=== PATIENT | female | born 1960 | race Two or more races ===

== ENCOUNTER 2024-12-03 17:44 | Emergency (ER) | payer OTHER ==
[~2024-12-03] VITALS: Ht 152.4 cm; Wt 63.6 kg
[2024-12-03 19:04] VITALS: TEMP 98.4
[2024-12-03] MEDS: NITROGLYCERIN 0.4 MG SL TAB SL ONE (19:04)
--- NOTE | 2024-12-03 19:04 | DVH ---
CHEST RADIOGRAPH Indication: Chest pain Technique: Single frontal view of the chest was obtained COMPARISON: None FINDINGS: Lines and Tubes: None Lungs: Clear Pleura: No effusion. No pneumothorax. Cardiomediastinal contours: Unremarkable Bones: Unremarkable IMPRESSION: No acute disease.
[2024-12-03 19:23] LABS: Basophils # (auto) 0.1 10 ^3/uL (0-0.2); Basophils % (auto) 1.1 % (0.0-2.0); Eosinophils # (auto) 0.4 10 ^3/uL (0-0.8); Eosinophils % (auto) 4.4 % (0.0-7.0); Hematocrit 40.6 % (36.0-46.0); Lymphocytes # (auto) 4.2 10 ^3/uL (0.4-5.4); Lymphocytes % (auto) 49.3 % (10.0-50.0); Mean Corpuscular Hemoglobin 31.1 pg (28.0-32.0); Mean Corpuscular Hgb Conc. 34.4 g/dL (32.0-36.0); Mean Corpuscular Volume 90.2 fL (80.0-100.0); Monocytes # (auto) 0.4 10 ^3/uL (0-1.3); Monocytes % (auto) 5.2 % (0.0-12.0); Neutrophils # (auto) 3.4 10 ^3/uL (1.6-8.6); Nucleated Red Blood Cells % 0.1 %; Platelet Count (auto) 285 10^3/uL (140-450); Red Cell Distribution Width 13.2 % (11.8-14.3); White Blood Cell 8.4 10^3/uL (4.4-10.8)
[2024-12-03 20:16] VITALS: BP 111/72; PULSE 87; RESP 17; O2SAT 98
[2024-12-03 20:32] LABS: Alkaline Phosphatase 96 U/L (46-116); Anion Gap 13 (5-15); Aspartate Aminotransferase 24 U/L (13-40); BUN/Creatinine Ratio 18.1 (10.0-20.0); Blood Urea Nitrogen 17 mg/dL (9-23); Calcium 10.1 mg/dL (8.7-10.4); Glucose 97 mg/dL (74-106); Sodium 140 mmol/L (136-145)
[2024-12-03 20:33] LABS: Total Protein 7.6 g/dL (5.7-8.2)
[2024-12-03 20:35] LABS: Alanine Aminotransferase 44 U/L (7-40); Albumin 4.9 g/dL (3.2-4.8); Bilirubin, Total 0.3 mg/dL (0.2-1.0); Carbon Dioxide 18 mmol/L (20-31); Chloride 109 mmol/L (98-107); Potassium 3.5 mmol/L (3.5-5.1)
[2024-12-03] MEDS ORDERED: NITR0.4S29 SL (21:28)
--- NOTE | 2024-12-03 21:29 | ED.PDOC ---
HPI Comments This patient is a moderately histrionic 64-year-old female who arrives to the ED today with complaints of left-sided chest pain that radiates into her left-sided neck, face and left arm for the past several hours. Patient states the symptoms came on and has been relatively unrelenting. Patient denies any history of cardiac or pulmonary issues. Patient denies any fever nausea or vomiting. Vital signs were stable on arrival. Chief Complaint: Chest Pain Time Seen by MD: 18:10 Reviewed Notes: Nurses Notes Information Source: Patient, Friend Mode of Arrival: Ambulatory Severity: Moderate Timing: Hours Duration: Since onset Prehospital treatment: None Location: Chest (L) Radiation: Jaw, Shoulder (L), Arm (L) Quality: Sharp, Stabbing, Crushing Onset: At Rest Cardiac Risk Factors: HTN, None History of: None Past Medical History PAST MEDICAL HISTORY: HTN Surgical History: Denies all surgeries REFINERY PROCESS ENGINEER History: No Pertinent REFINERY PROCESS ENGINEER History Family History Family History: Reviewed,noncontributory to illness, No family hx of Cancer, No family hx of DM, No family hx of Heart danette, No family hx of HTN, No family hx ofKidney danette, No family hx of Liver danette, No family hx of Lung danette, No family hx of Stroke Social History Smoker: Non-Smoker Alcohol: Denies ETOH Use Drugs: Denies Drug Use Lives In: Home Constitutional: denies: chills, diaphoresis, fatigue, fever, malaise, sweats, weakness, others EENTM: denies: blurred vision, double vision, ear bleeding, ear discharge, ear drainage, ear pain, ear ringing, eye pain, eye redness, hearing loss, mouth pain, mouth swelling, nasal discharge, nose bleeding, nose congestion, nose pain, photophobia, tearing, throat pain, throat swelling, voice changes, others Respiratory: denies: cough, hemoptysis, orthopnea, SOB at rest, shortness of breath, SOB with excertion, stridor, wheezing, others Cardiovascular: reports: chest pain; denies: dizzy spells, diaphoresis, Dyspnea on exertion, edema, irregular heart beat, left arm pain, lightheadedness, palpitations, PND, syncope, others Gastrointestinal: denies: abdomen distended, abdominal pain, blood streaked bowels, constipated, diarrhea, dysphagia, difficulty swallowing, hematemesis, melena, nausea, poor appetite, poor fluid intake, rectal bleeding, rectal pain, vomiting, others Genitourinary: denies: abnormal vagina bleeding, burning, dyspareunia, dysuria, flank pain, frequency, hematuria, incontinence, pain, , vagina discharge, urgency, others Neurological: denies: dizziness, fainting, headache, left sided numbness, left sided weakness, numbness, paresthesia, pre-existing deficit, right sided numbness, right sided weakness, seizure, speech problems, tingling, tremors, weakness, others Musculoskeletal: denies: back pain, gout, joint pain, joint swelling, muscle pain, muscle stiffness, neck pain, others Integumetry: denies: bruises, change in color, change in hair/nails, dryness, laceration, lesions, lumps, rash, wounds, others Allergic/Immunocompromised: denies: Difficulty Healing, Frequent Infections, Hives, Itching, others Hematologic/Lymphatic: denies: anemia, blood clots, easy bleeding, easy bruising, swollen glands, others Endocrine: denies: excessive hunger, excessive sweating, excessive thirst, excessive urination, flushing, intolerance to cold, intolerance to heat, unexplained weight gain, unexplained weight loss, others Psychiatric: denies: anxiety, bipolar disorder, depression, hopeless, panic disorder, schizophrenia, sleepless, suicidal, others Physical Exam General Appearance: Moderate Distress (Patient appears to be in moderate distress at time of evaluation.), Normal HEENT: Normal ENT Inspection, Pharynx Normal, TMs Normal Neck: Full Range of Motion, Non-Tender, Normal, Normal Inspection, Other (Unremarkable evaluation of left-sided neck and face. No signs of trauma. No pulsatile masses.) Respiratory: Chest Non-Tender, Lungs Clear, No Accessory Muscle Use, No Respiratory Distress, Normal Breath Sounds, Other (Unable to elicit any additional pain on palpation. No signs of trauma.) Cardiovascular: No Edema, No JVD, No Murmur, No Gallop, Normal Peripheral Pul ses, Regular Rate/Rhythm, Other (Cardiac evaluation.) Breast Exam: Deferred Gastrointestinal: No Organomegaly, Non Tender, No Pulsatile Mass, Normal Bowel Sounds, Soft Genitalia: Deferred Pelvic: Deferred Rectal: Deferred Extremities: No calf tenderness, Normal capillary refill, Normal inspection, Normal range of motion, Non-tender, No pedal edema Neurologic: Alert, flooring professional II-XII nml as Tested, No Motor Deficits, Normal Affect, Normal Mood, No Sensory Deficits Cerebellar Function: Normal Reflexes: Normal Skin: Dry, Normal Color, Warm Lymphatic: No Adenopathy Was a procedure done? Was a procedure done?: No CP Differential Dx Differential Diagnosis: Anxiety / Panic Attack, Atrial Dysrhythmia, AV Block 1st Degree, [place] Differential Diagnosis: CHF Differential Diagnosis: Angina X-Ray, Labs, Meds, VS Vital Signs Date Time Temp Pulse Resp B/P (MAP) Pulse Ox O2 Delivery O2 Flow Rate FiO2 12/03/24 20:16 87 17 111/72 (85) 98 12/03/24 20:15 111/72 12/03/24 19:04 98.4 92 17 120/74 (89) 95 98.4 12/03/24 19:04 120/74 12/03/24 19:04 92 12/03/24 17:54 90 12/03/24 17:50 97.9 85 18 131/79 (96) 95 Lab Test 12/03/24 20:30 12/03/24 18:33 12/03/24 17:50 12/03/24 17:30 Range/Units Troponin I High Sensitivity < 3 L < 3 L < 3 L </=34 ng/L Lactic Acid Level 1.3 0.4-2.0 mmol/L White Blood Count 8.4 4.4-10.8 10^3/uL Red Blood Count 4.50 4.0-5.20 10^6/uL Hemoglobin 14.0 12.2-16.2 g/dL Hematocrit 40.6 36.0-46.0 % Mean Corpuscular Volume 90.2 80.0-100.0 fL Mean Corpuscular Hemoglobin 31.1 28.0-32.0 pg Mean Corpuscular Hemoglobin Concent 34.4 32.0-36.0 g/dL Red Cell Distribution Width 13.2 11.8-14.3 % Platelet Count 285 140-450 10^3/uL Mean Platelet Volume 8.8 6.9-10.8 fL Neutrophils (%) (Auto) 40.0 37.0-80.0 % Lymphocytes (%) (Auto) 49.3 10.0-50.0 % Monocytes (%) (Auto) 5.2 0.0-12.0 % Eosinophils (%) (Auto) 4.4 0.0-7.0 % Basophils (%) (Auto) 1.1 0.0-2.0 % Neutrophils # (Auto) 3.4 1.6-8.6 10 ^3/uL Lymphocytes # (Auto) 4.2 0.4-5.4 10 ^3/uL Monocytes # (Auto) 0.4 0-1.3 10 ^3/uL Eosinophils # (Auto) 0.4 0-0.8 10 ^3/uL Basophils # (Auto) 0.1 0-0.2 10 ^3/uL Nucleated Red Blood Cells 0.1 % Sodium Level 140 136-145 mmol/L Potassium Level 3.5 3.5-5.1 mmol/L Chloride Level 109 H 98-107 mmol/L Carbon Dioxide Level 18 L 20-31 mmol/L Anion Gap 13 5-15 Blood Urea Nitrogen 17 9-23 mg/dL Creatinine 0.94 0.550-1.02 mg/dL Glomerular Filtration Rate Calc 68 >90 mL/min BUN/Creatinine Ratio 18.1 10.0-20.0 Serum Glucose 97 74-106 mg/dL Calcium Level 10.1 8.7-10.4 mg/dL Total Bilirubin 0.3 0.2-1.0 mg/dL Aspartate Amino Transferase (AST) 24 13-40 U/L Alanine Aminotransferase (ALT) 44 H 7-40 U/L Alkaline Phosphatase 96 46-116 U/L B-Type Natriuretic Peptide 9.97 0-100 pg/mL Total Protein 7.6 5.7-8.2 g/dL Albumin 4.9 H 3.2-4.8 g/dL Current Medications Medications (Trade) Dose Ordered Sig/Kailee Route Start Time Stop Time Status Last Admin Nitroglycerin (Ntrostat Sublingual) 0.4 mg ONCE ONCE SL 12/03/24 18:15 12/03/24 18:17 DC 12/03/24 19:04 X-Ray, Labs, Meds, VS Comment All studies performed the ED were evaluated by me personally. Patient had some moderate relief of symptoms status post medication dispensed. Patient's EKG revealed a sinus rhythm with a rate of 90, left atrial enlargement, borderline T abnormalities on anterior leads. NV interval of 142 and QT interval of 372. Relatively unremarkable EKG. Serum laboratories were unremarkable for any systemic process or cardiac concerns. Chest x-ray was unremarkable for any consolidation or pulmonary concerns. Patient appears to be suffering from a chest pain event. Advised patient utilize medication as needed and follow up with her primary care provider for a cardiology referral and evaluation as the patient may benefit from a cardiac stress test as well as evaluation via 2D echo. Time of 1ST Reevaluation: : Reevaluation 1ST: Improved Consultation: PCP, Cardiology Patient Education/Counseling: Diagnosis, Treatment Family Education/Counseling: Diagnosis, Treatment Departure 1 Departure Time of Disposition: : Impression: Primary Impression: Chest pain Disposition: HOME / SELF CARE / HOMELESS Condition: Stable Additional Instructions: Advised patient utilize medication as needed for symptomatic relief in additionally, patient needs to follow up with her primary care provider for cardiac referral and evaluation. e-Prescriptions Nitroglycerin (Nitrostat) 0.4 Mg Sub 0.4 MG SL Q12HP PRN, #10 INJ Prov: LAN CASTRO PAC 12/03/24 Discharged With: Self, Spouse Critical Care Note Critical Care Time?: No Stability Stability form required: No Heart Score Heart Score: Heart Score Response (Comments) Value History Slightly Suspicious 0 EKG Repolarization Disturb 1 Age 45-64 1 Risk Factors 1 or 2 risk factors 1 Troponin Normal limit 0 Total 3 LAN CASTRO PAC Dec 03, 2024 21:29
--- NOTE | 2024-12-06 11:07 | ECG ---
[facility], [place] Test Date: 2024-12-03 Test Time: 17:52:10 Pat Name: MYRA SHETH Department: ED Room: Gender: F Collision Mechanic: SHAHAB : 1960 Requested By: VALDO NAQVI Order Number: [id number] Reading MD: Nima Cordero Measurements Intervals [place] Rate: 90 P: 76 DE: 142 QRS: 67 QRSD: 88 T: 49 QT: 372 QTc: 455 Interpretive Statements Sinus rhythm Left atrial enlargement Borderline T abnormalities, anterior leads Electronically Signed On 12-12-2024 14:17:37 PST by Nima Cordero Please click the below link to view image of tracing.
== END 2024-12-03 22:07 | disposition home or self-care (01) ==
LOC: ER 17:44
DX: R07.89 Other chest pain (principal); I10 Essential (primary) hypertension; M54.2 Cervicalgia; M79.602 Pain in left arm
CPT/HCPCS: 36415; 71045; 80053; 83605; 83880; 84484; 85025; 93005